=== PATIENT | male | born 1975 ===

== ENCOUNTER 2019-10-14 16:00 | Emergency (ER) | payer OTHER ==
[~2019-10-14] VITALS: Ht 190.5 cm; Wt 154.5 kg
[2019-10-14 16:20] VITALS: BP 126/68
--- NOTE | 2019-10-14 16:22 | PHYS DOC ---
Adult General Chief Complaint Chief Complaint: WOUND CHECK [facility] HPI Patient is a 44 year old male who presents with right foot pain has been ongoing for several months. The patient states that he had a blister to his first toe on his right foot and that the blisters continued to hurt of several months. The patient states he has callous over the blister. He denies any history of diabetes but does state that they treating for diabetes when he had a heart attack. Denies fever or any other symptoms. The patient's does state that his pain is 4 out of 10 in severity and constant. Review of Systems Review of Systems Constitutional: Denies fever or chills [] Eyes: Denies change in visual acuity, redness, or eye pain [] HENT: Denies nasal congestion or sore throat [] Respiratory: Denies cough or shortness of breath [] Cardiovascular: No additional information not addressed in HPI [] GI: Denies abdominal pain, nausea, vomiting, bloody stools or diarrhea [] : Denies dysuria or hematuria [] Musculoskeletal: Reports 1st toe pain (R). Integument: Denies rash or skin lesions [] Neurologic: Denies headache, focal weakness or sensory changes [] Endocrine: Denies polyuria or polydipsia [] Complete systems were reviewed and found to be within normal limits, except as documented in this note. Allergies Allergies Allergies Coded Allergies Type Severity Reaction Last Updated Verified No Known Drug Allergies 10/14/19 No Physical Exam Physical Exam Constitutional: Well developed, well nourished, no acute distress, non-toxic appearance. [] HENT: Normocephalic, atraumatic, bilateral external ears normal, oropharynx moist, no oral exudates, nose normal. [] Eyes: PERRLA, EOMI, conjunctiva normal, no discharge. [] Skin: mild erythema on top of R great toe. The patient foot is dirty in appearance and he also has callous and tenderness at bottom of great toe. Back: No tenderness, no CVA tenderness. [] Extremities: No tenderness, no cyanosis, no clubbing, ROM intact, no edema. [] Neurologic: Alert and oriented X 3, normal motor function, normal sensory function, no focal deficits noted. [] Psychologic: Affect normal, judgement normal, mood normal. [] Current Patient Data Vital Signs Vital Signs Date Time Temp Pulse Resp B/P (MAP) Pulse Ox O2 Delivery O2 Flow Rate FiO2 10/14/19 16:20 98.0 108 18 126/68 (87) 100 Room Air 98.0 EKG EKG [] Radiology/Procedures Radiology/Procedures [][facility] [address] [place] [address] IMAGING REPORT Signed PATIENT: ARSLAN MARVINCCOUNT: [id number] : 1975 LOCATION: ER AGE: 44 SEX: M EXAM STATUS: PRE ER ORD. PHYSICIAN: MARLO REES APRN REASON: 1st digit pain PROCEDURE: FOOT RIGHT 3V FOOT RIGHT 3V History: First digit pain.. Several small round lucencies within the soft tissues at the medial first toe. These could represent small air bubbles that the patient has an ulcer or wound here. Mild soft tissue swelling in this area. No evidence of acute fracture. No aggressive bone destruction. Joint spaces and alignment are intact. Degenerative changes with dorsal spurring at the talonavicular joint. Calcaneal enthesophytes are identified. IMPRESSION: 1. Mild soft tissue swelling medial to the first toe. There are several small round lucencies, may represent air from surface exposure, or soft tissue infection. 2. No acute bone abnormality. Electronically signed by: Marlo Galicia MD (10/14/2019 4:35 PM) [id number] DICTATED and SIGNED BY: MARLO GALICIA MD DATE: 10/14/19 1635 Course & Med Decision Making Course & Med Decision Making Pertinent Labs and Imaging studies reviewed. (See chart for details) Will get x-ray and check blood sugar. BS is 209 X-ray shows possible infection. This has been ongoing for months and patient is not running fever. Will put patient on Keflex and treat for Cellulitis. Will have follow up with PCP. Kendra Disclaimer Tammieon Disclaimer This electronic medical record was generated, in whole or in part, using a voice recognition dictation system. Departure Departure Impression: Primary Impression: Cellulitis Disposition: 01 HOME, SELF-CARE Condition: STABLE Referrals: KATIE PIPER MD (PCP) Patient Instructions: Cellulitis Additional Instructions: Thank you for visiting [facility]. We appreciate you trusting us with your care. If any additional problems come up don't hesitate to return to visit us. Please follow up with your primary care provider so they can plan additional care if needed and know about the problem that you had. If symptoms worsen come back to the Emergency Department. Any concerning symptoms that start such as chest pain, shortness of air, weakness or numbness on one side of the body, running high fevers or any other concerning symptoms return to the ER. Please be aware that diabetes can cause your sugars to fluctuate while you are sick. This can cause additional issues. Please check your sugars often to ensure they are staying in a safe range and if you are on insulin please take as instr ucted by your primary care doctor. If you have any questions about this please let us know or contact your primary care provider for additional instruction about taking your insulin while you are sick. If you get concerned regarding your sugar while at home please do not hesitate to come back to the ER. You have been prescribed an antibiotic today to help fight your infection. Ple ase take all of the antibiotic as directed. If after 48 hours the infection is not improving, please return for more care. If the infection worsens, return to ER for additional care. Scripts Cephalexin (KEFLEX) 500 Mg Capsule 1 CAP PO QID for 10 Days, #40 CAP 0 Refills Prov: MARLO REES APRN 10/14/19 Problem Qualifiers Primary Impression: Cellulitis Site of cellulitis: extremity Site of cellulitis of extremity: toe Laterality: right Qualified Codes: L03.031 - Cellulitis of right toe MARLO REES APRN Oct 14, 2019 16:21
--- NOTE | 2019-10-14 16:38 | RAD ---
FOOT RIGHT 3V History: First digit pain.. Several small round lucencies within the soft tissues at the medial first toe. These could represent small air bubbles that the patient has an ulcer or wound here. Mild soft tissue swelling in this area. No evidence of acute fracture. No aggressive bone destruction. Joint spaces and alignment are intact. Degenerative changes with dorsal spurring at the talonavicular joint. Calcaneal enthesophytes are identified. IMPRESSION: 1. Mild soft tissue swelling medial to the first toe. There are several small round lucencies, may represent air from surface exposure, or soft tissue infection. 2. No acute bone abnormality. Electronically signed by: Marlo Galicia MD (10/14/2019 4:35 PM) [id number]
[2019-10-14] MEDS ORDERED: CEPH-264 PO (16:46)
== END 2019-10-14 17:04 | disposition home or self-care (01) ==
LOC: ER 16:00
DX: L03.031 Cellulitis of right toe (principal)
CPT/HCPCS: 73630; 82962; 99284